=== PATIENT | female | born 1975 | race African-American/Black ===

== ENCOUNTER 2022-05-04 10:54 | Emergency (ER) | payer BC ==
[2022-05-04] MEDS ORDERED: Meclizine HCl 25 MG TAB ONE (12:07)
[2022-05-04 13:04] LABS: #Eosinphils 0.1 10x3/uL (0.0-0.5); #Monocytes 0.5 10x3/uL (0.0-1.1); #Neutrophils 9.8 10x3/uL (1.5-8.4); %Basophils 0.3 % (0.0-2.0); %Eosinophils 0.9 % (0.0-6.0); %Lymphocytes 10.6 % (18.0-47.0); %Monocytes 4.5 % (0.0-10.0); %Neutrophils 83.4 % (40.0-75.0); Hemoglobin 11.6 g/dL (12.0-15.5); Mean Corpuscular HGB CONC 31.1 g/dL (32.0-36.0); Mean Corpuscular Hemoglobin 23.4 pg (27.0-33.0); Mean Corpuscular Volume 75.4 fl (81.6-98.3); Mean Platelet Volume 11.3 fl (7.4-10.4); Platelet Count 273 10x3/uL (150-450); RBC Distribution Width 15.1 % (11.5-14.5); Red Blood Cell (RBC) Count 4.95 10x6/uL (3.90-5.03); White Blood Cell (WBC) Count 11.7 10x3/uL (3.5-10.5)
[2022-05-04 13:27] LABS: BHCG - Serum Negative (NEGATIVE)
[2022-05-04 13:28] LABS: Pregs Control Background? CLEAR/WHITE (CLR/WHITE); Pregs Control Bar Appear? YES (CONTROL BAR)
[2022-05-04 13:30] LABS: ALT (SGPT) 23 U/L (8-55); AST (SGOT) 21 U/L (5-34); Albumin 3.8 g/dL (3.5-5.0); Alkaline Phosphatase 75 U/L (40-110); Anion Gap 10 mmol/L (10-20); BUN (Urea Nitrogen) 12 mg/dL (7.0-18.7); Bilirubin, Total 0.3 mg/dL (0.2-1.2); Calc. Creatinine Clearance 0 mL/min (70-130); Calcium 9.1 mg/dL (7.8-10.44); Carbon Dioxide 29 mmol/L (22-29); Chloride 104 mmol/L (98-107); Estimated GFR 68; Globulin 3.4 g/dL (2.4-3.5); Glucose 93 mg/dL (70-105); Protein, Total 7.2 g/dL (6.0-8.3); Sodium 139 mmol/L (136-145)
[2022-05-04 14:22] LABS: Bilirubin Neg (Negative); Blood, Urine Negative (Negative); Clarity Clear (Clear); Glucose, Urine (Dipstick) Normal (Negative); Ketone, Urine Negative (Negative); Leukocyte 25 (Negative); Nitrite Negative (Negative); Protein, Urine (Dipstick) Negative (Neg-Trace); Urobilinogen Normal mg/dL (Less than 2)
[2022-05-04 14:50] LABS: Bacteria/HPF None Seen HPF (None Seen); RBC/HPF None Seen HPF (0-3); Squamous Epithelial 0-3 HPF (0-3); WBC/HPF 0-3 HPF (0-3)
== END 2022-05-04 16:20 | disposition home or self-care (01) ==
LOC: CSHERS 10:54
DX: R53.1 Weakness (principal); R11.0 Nausea
CPT/HCPCS: 36415; 36416; 80053; 81003; 81015; 84484; 84703; 85025; 93005

== ENCOUNTER 2023-03-19 07:14 | Emergency (ER) | payer BC ==
[2023-03-19] MEDS ORDERED: Ketorolac Tromethamine 30 MG/ML VIAL ONE (08:12)
== END 2023-03-19 08:20 | disposition home or self-care (01) ==
LOC: CSHERS 07:14
DX: M25.532 Pain in left wrist (principal); I10 Essential (primary) hypertension
CPT/HCPCS: 96372; J1885

== ENCOUNTER 2023-08-19 11:08 | Emergency (ER) | payer BC ==
[~2023-08-19 11:08] MED LIST: Iopamidol 370 76% 100 ML VIAL ONE
[2023-08-19] MEDS ORDERED: Magnesium 2 GM/50 ML BAG (IN WATER) ONE (11:59)
[2023-08-19] MEDS ORDERED: Dexamethasone 20 MG/5 ML VIAL ONE (12:16)
[2023-08-19] MEDS ORDERED: Ipratropium/Albuterol 3 ML NEB ONE (12:27)
[2023-08-19] MEDS ORDERED: Albuterol 2.5 MG (3 mL) NEB ONE (12:27)
[2023-08-19 12:35] LABS: SARS-CoV-2 NAA Rapid Test Not Detected (NotDetected)
[2023-08-19 13:14] LABS: #Monocytes 0.6 10x3/uL (0.0-1.1); #Neutrophils 4.5 10x3/uL (1.5-8.4); %Basophils 0.3 % (0.0-2.0); %Lymphocytes 22.5 % (18.0-47.0); %Monocytes 8.6 % (0.0-10.0); %Neutrophils 68.1 % (40.0-75.0); Hematocrit 40.1 % (34.9-44.5); Hemoglobin 12.5 g/dL (12.0-15.5); Mean Corpuscular HGB CONC 31.2 g/dL (32.0-36.0); Mean Corpuscular Hemoglobin 23.8 pg (27.0-33.0); Mean Corpuscular Volume 76.2 fl (81.6-98.3); Mean Platelet Volume 11.6 fl (7.4-10.4); Platelet Count 216 10x3/uL (150-450); RBC Distribution Width 15.3 % (11.5-14.5); Red Blood Cell (RBC) Count 5.26 10x6/uL (3.90-5.03); White Blood Cell (WBC) Count 6.5 10x3/uL (3.5-10.5)
[2023-08-19 13:23] LABS: ALT (SGPT) 20 U/L (8-55); AST (SGOT) 23 U/L (5-34); Albumin 3.6 g/dL (3.5-5.0); Alkaline Phosphatase 67 U/L (40-110); Anion Gap 11 mmol/L (10-20); BUN (Urea Nitrogen) 10 mg/dL (7.0-18.7); Bilirubin, Total 0.2 mg/dL (0.2-1.2); Calc. Creatinine Clearance 0 mL/min (70-130); Calcium 8.4 mg/dL (7.8-10.44); Carbon Dioxide 29 mmol/L (22-29); Chloride 103 mmol/L (98-107); Estimated GFR 58; Glucose 108 mg/dL (70-105); Potassium 4.3 mmol/L (3.5-5.1); Protein, Total 6.6 g/dL (6.0-8.3); Sodium 139 mmol/L (136-145)
[2023-08-19 13:29] LABS: Troponin I 0.013 ng/mL (< 0.028)
== END 2023-08-19 14:26 | disposition home or self-care (01) ==
LOC: CSHERS 11:08
DX: J18.9 Pneumonia, unspecified organism (principal); J11.1 Influenza due to unidentified influenza virus with other respiratory manifestations; J45.909 Unspecified asthma, uncomplicated; I10 Essential (primary) hypertension
CPT/HCPCS: 36415; 71045; 71275; 80053; 83880; 84484; 85025; 85379; 93005; 96374; 96375; J1100; J3475; J7611; J7620; Q9967